=== PATIENT | male | born 1990 ===

== ENCOUNTER 2020-11-04 16:06 | Inpatient (IN) ==
[2020-11-04] MEDS ORDERED: SODIUM CHLORIDE 0.9% 1,000 ML IV PRN (20:31)
[2020-11-04] MEDS ORDERED: diphenhydrAMINE CAP 25 MG CAPSULE PO PRN (20:33)
[2020-11-04] MEDS ORDERED: GLUCAGON 1 MG VIAL IM PRN (20:33)
[2020-11-04] MEDS ORDERED: ACETAMINOPHEN 325 MG TABLET PO PRN (20:33)
[2020-11-04] MEDS ORDERED: guaiFENesin/DM ER 600-30 MG TABLET PO PRN (20:33)
[2020-11-04] MEDS ORDERED: NICOTINE 21 MG/24 HR PATCH TRANSDERM PRN (20:33)
[2020-11-04] MEDS ORDERED: DEXTROSE 50% 25 GM/50 ML VIAL IV PRN (20:33)
[2020-11-04] MEDS ORDERED: ONDANSETRON 4 MG/2 ML VIAL IV PRN (20:33)
[2020-11-04] MEDS ORDERED: hydrALAZINE 20 MG/1 ML VIAL IV PRN (20:33)
[2020-11-04] MEDS ORDERED: ZALEPLON 5 MG CAPSULE PO PRN (20:33)
[2020-11-04] MEDS ORDERED: DOCUSATE SODIUM 100 MG CAPSULE PO PRN (20:33)
[2020-11-04] MEDS ORDERED: chlordiazePOXIDE 10 MG CAPSULE PO PRN (21:10)
[2020-11-04] MEDS ORDERED: LORazepam 2 MG/1 ML VIAL IV PRN (21:12)
[2020-11-04 21:15] LABS: Basophils % 0.4 % (0.0-0.8); Eosinophils % 0.2 % (0.00-10.9); Hematocrit 35.1 VOL% (42.0-52.0); Hemoglobin 11.6 GM/DL (14.0-18.0); Immature Granulocytes % 0.4 %; Immature Granulocytes Absolute 0.02 #; Lymphocytes # 0.7 10*3/uL (1.4-4.0); Lymphocytes % 14.3 % (21.2-54.2); Mean Corpuscular Volume 99.7 FL (87-102); Mean Platelet Volume 11.3 FL (9.6-12.0); Monocytes % 6.4 % (1.7-12.7); Neutrophils % 78.3 % (38.7-73.9); Red Blood Count 3.52 MC/CUMM (3.8-5.5); Red Cell Distribution Width 14.3 % (9.3-17.3)
[2020-11-04 21:17] LABS: Platelet Count 21 T/CUMM (130-400)
[2020-11-04 21:27] LABS: Albumin 3.6 G/DL (3.4-5.0); Bilirubin,Total 3.1 MG/DL (0.20-1.00); Calcium 8.2 MG/DL (8.5-10.1); Osmolality,Calculated 275.7 MOS/KG (273-304); Potassium 4.3 MMOL/L (3.5-5.1)
[2020-11-04 21:31] LABS: INR 1.6; PT Patient Result 17.6 SECS (10.5-12.0); Partial Thromboplastin Time 35.2 SECS (23.9-33.8)
[2020-11-04 23:01] LABS: Albumin 3.6 G/DL (3.4-5.0); Bilirubin,Direct 1.29 MG/DL (0.0-0.20); Bilirubin,Indirect 1.7 MG/DL (0.0-1.0); Total Protein 8.1 G/DL (6.4-8.2)
[2020-11-05] MEDS: chlordiazePOXIDE 10 MG CAPSULE PO SCH ×4 (01:16→21:23)
[2020-11-05] MEDS: THIAMINE INJ 100 MG, FOLIC ACID INJ 1 MG, MAGNESIUM SULF INJ 2 GM, MULTIVITAMIN INJ 10 ... IV SCH ×2 (04:06→21:23)
[2020-11-05 06:05] LABS: Basophils % 0.2 % (0.0-0.8); Eosinophils % 0.7 % (0.00-10.9); Hematocrit 31.2 VOL% (42.0-52.0); Hemoglobin 10.7 GM/DL (14.0-18.0); Immature Granulocytes % 0.2 %; Immature Granulocytes Absolute 0.01 #; Lymphocytes # 1.4 10*3/uL (1.4-4.0); Mean Corpuscular HGB Conc 34.3 GM/DL (32-36); Monocytes % 7.6 % (1.7-12.7); Neutrophils % 59.3 % (38.7-73.9); Platelet Count 42 T/CUMM (130-400); Red Blood Count 3.15 MC/CUMM (3.8-5.5); Red Cell Distribution Width 14.3 % (9.3-17.3); White Blood Count 4.3 T/CUMM (4-12)
[2020-11-05 06:34] LABS: Albumin 3.4 G/DL (3.4-5.0); Calcium 8.1 MG/DL (8.5-10.1); Hypochromasia 1+; Microcytosis 1+; Osmolality,Calculated 276.7 MOS/KG (273-304); Platelet Estimate Decreased; Potassium 3.2 MMOL/L (3.5-5.1); Total Protein 7.4 G/DL (6.4-8.2)
[2020-11-05 07:12] LABS: Hepatitis B Core IgM Quant < 0.05 Index; Hepatitis B Surface Ag Quant < 0.10 Index; Hepatitis B Surface Ag Result Non-Reactive (NonReactive); Hepatitis C Virus Ab Quant 0.11 Index; Hepatitis C Virus Ab Result Non-Reactive (NonReactive)
[2020-11-05] MEDS ORDERED: MAGNESIUM SULF RIDER 2 GM/50 ML PREMIX IV PRN (07:29)
[2020-11-05] MEDS: POTASSIUM CHLORIDE 20 MEQ TABLET PO PRN ×4 (08:31→15:45)
[2020-11-05] MEDS: FOLIC ACID 1 MG TABLET PO SCH ×2 (08:31→21:23)
[2020-11-05] MEDS: PANTOPRAZOLE 40 MG TABLET PO SCH (08:31)
[2020-11-05] MEDS: THIAMINE 100 MG TABLET PO SCH ×2 (08:31→21:32)
[2020-11-05] MEDS: MULTIVITAMIN (CENTRUM) TABLET PO SCH (08:31)
[2020-11-06 06:28] LABS: Basophils % 0.2 % (0.0-0.8); Eosinophils # 0.2 10*3/uL (0.0-0.87); Hematocrit 29.2 VOL% (42.0-52.0); Hemoglobin 9.6 GM/DL (14.0-18.0); Immature Granulocytes % 0.2 %; Immature Granulocytes Absolute 0.01 #; Lymphocytes # 1.7 10*3/uL (1.4-4.0); Lymphocytes % 42.6 % (21.2-54.2); Mean Corpuscular HGB Conc 32.9 GM/DL (32-36); Mean Corpuscular Volume 101.4 FL (87-102); Mean Platelet Volume 10.6 FL (9.6-12.0); Monocytes % 6.2 % (1.7-12.7); Neutrophils % 46.8 % (38.7-73.9); Red Blood Count 2.88 MC/CUMM (3.8-5.5); Red Cell Distribution Width 14.2 % (9.3-17.3)
[2020-11-06 06:39] LABS: Platelet Count 36 T/CUMM (130-400)
[2020-11-06 06:47] LABS: Albumin 3.1 G/DL (3.4-5.0); Bilirubin,Total 3.3 MG/DL (0.20-1.00); Calcium 7.8 MG/DL (8.5-10.1); Osmolality,Calculated 271.7 MOS/KG (273-304); Potassium 3.6 MMOL/L (3.5-5.1)
[2020-11-06 06:48] LABS: Hypochromasia 1+; Microcytosis 1+; Platelet Estimate Decreased
[2020-11-06] MEDS: PANTOPRAZOLE 40 MG TABLET PO SCH (08:45)
[2020-11-06] MEDS: chlordiazePOXIDE 10 MG CAPSULE PO SCH ×2 (08:45→15:25)
[2020-11-06] MEDS: THIAMINE 100 MG TABLET PO SCH (08:45)
[2020-11-06] MEDS: MULTIVITAMIN (CENTRUM) TABLET PO SCH (08:45)
[2020-11-06] MEDS: FOLIC ACID 1 MG TABLET PO SCH (08:45)
[2020-11-06] MEDS: POTASSIUM CHLORIDE 20 MEQ TABLET PO PRN ×2 (10:57→13:03)
[2020-11-06 16:20] VITALS: BP 119/72
== END 2020-11-06 17:38 | disposition home or self-care (01) | DRG 434 ==
LOC: N.3E
PROVIDERS: ADMIT Internal Medicine; ATTEND Internal Medicine

== ENCOUNTER 2021-06-18 20:53 | Inpatient (IN) ==
[2021-06-19] MEDS ORDERED: ONDANSETRON 4 MG/2 ML VIAL IV PRN (00:50)
[2021-06-19] MEDS ORDERED: MORPHINE 4 MG/1 ML VIAL IV PRN (00:50)
[2021-06-19] MEDS ORDERED: ACETAMINOPHEN 325 MG TABLET PO PRN (00:50)
[2021-06-19] MEDS ORDERED: DEXTROSE 10% 250 ML BAG IV PRN (00:50)
[2021-06-19] MEDS ORDERED: GLUCAGON 1 MG VIAL IM PRN (00:50)
[2021-06-19 01:00] LABS: Basophils % 0.4 % (0.0-0.8); Eosinophils # 0.3 10*3/uL (0.0-0.87); Eosinophils % 3.6 % (0.00-10.9); Immature Granulocytes % 0.8 %; Immature Granulocytes Absolute 0.06 #; Lymphocytes # 2.5 10*3/uL (1.4-4.0); Lymphocytes % 32.4 % (21.2-54.2); Mean Corpuscular HGB Conc 31.6 GM/DL (32-36); Mean Corpuscular Volume 113.8 FL (87-102); Mean Platelet Volume 9.5 FL (9.6-12.0); Monocytes % 10.4 % (1.7-12.7); Neutrophils % 52.4 % (38.7-73.9); Platelet Count 126 T/CUMM (130-400); Red Blood Count 1.67 MC/CUMM (3.8-5.5); Red Cell Distribution Width 18.3 % (9.3-17.3); White Blood Count 7.8 T/CUMM (4-12)
[2021-06-19] MEDS ORDERED: SODIUM CHLORIDE 0.9% 1,000 ML IV PRN ×3 (01:07→13:06)
[2021-06-19 01:09] LABS: INR 1.9; PT Patient Result 20.3 SECS (10.5-12.0)
[2021-06-19 01:20] LABS: Albumin 1.2 G/DL (3.4-5.0); Bilirubin,Direct 4.72 MG/DL (0.0-0.20); Bilirubin,Indirect 1.7 MG/DL (0.0-1.0); Bilirubin,Total 6.4 MG/DL (0.20-1.00); Calcium 7.8 MG/DL (8.5-10.1); Osmolality,Calculated 265.5 MOS/KG (273-304); Potassium 3.5 MMOL/L (3.5-5.1); Total Protein 6.8 G/DL (6.4-8.2)
[2021-06-19] MEDS ORDERED: LORazepam 2 MG/1 ML VIAL IV PRN (01:31)
[2021-06-19 01:44] LABS: % Iron Saturation 18.4 % (18-50)
[2021-06-19 02:37] LABS: Hypochromia 3+
[2021-06-19 02:38] LABS: Platelet Estimate Adequate; Polychromasia Few
[2021-06-19 02:52] LABS: Folate 7.84 NG/ML (5.38-24.0)
[2021-06-19] MEDS: PANTOPRAZOLE 40 MG VIAL IV SCH ×2 (03:40→09:20)
[2021-06-19] MEDS ORDERED: PANTOPRAZOLE 40 MG TABLET PO SCH (09:00)
[2021-06-19] MEDS: chlordiazePOXIDE 10 MG CAPSULE PO SCH ×3 (09:20→21:57)
[2021-06-19] MEDS: THIAMINE 100 MG TABLET PO SCH ×2 (09:20→21:57)
[2021-06-19] MEDS: FOLIC ACID 1 MG TABLET PO SCH (09:20)
[2021-06-19] MEDS ORDERED: ALBUMIN 5% 25 GM/500 ML VIAL IV ONE (11:00)
[2021-06-19] MEDS ORDERED: PHYTONADIONE 5 MG/5 ML ORAL.SYR PO ONE (11:00)
[2021-06-19 15:46] LABS: Mucus,Urine Many /LPF (Occasional); RBC,Urine 1 /HPF (0-4)
[2021-06-19 15:47] LABS: Urine Appearance Slightly Hazy (Clear); Urine Color Amber (Yellow)
[2021-06-19 15:48] LABS: Glucose,Urine (UA) 100 mg/dL (Negative); Ketones,Urine Trace mg/dL (Negative); Nitrite,Urine Negative (Negative); Protein,Urine Negative; Urine Specific Gravity >= 1.030 (1.001-1.035)
[2021-06-19 15:49] LABS: Bilirubin,Urine Moderate mg/dL (Negative); Blood, Urine Negative (Negative); Urine Urobilinogen >= 8.0 EU/DL (<2.0)
[2021-06-19 16:17] LABS: Hematocrit 20.6 VOL% (42.0-52.0); Hemoglobin 6.6 GM/DL (14.0-18.0)
[2021-06-19 16:24] LABS: INR 1.7; PT Patient Result 18.4 SECS (10.5-12.0)
[2021-06-20] MEDS: PANTOPRAZOLE 40 MG VIAL IV SCH ×3 (00:09→21:33)
[2021-06-20 05:39] LABS: Basophils % 0.4 % (0.0-0.8); Eosinophils # 0.4 10*3/uL (0.0-0.87); Hematocrit 21.1 VOL% (42.0-52.0); Hemoglobin 6.8 GM/DL (14.0-18.0); Immature Granulocytes % 0.8 %; Immature Granulocytes Absolute 0.04 #; Lymphocytes % 37.1 % (21.2-54.2); Mean Corpuscular HGB Conc 32.2 GM/DL (32-36); Mean Corpuscular Volume 104.5 FL (87-102); Mean Platelet Volume 9.5 FL (9.6-12.0); Monocytes % 10.2 % (1.7-12.7); Neutrophils % 44.5 % (38.7-73.9); Platelet Count 106 T/CUMM (130-400); Red Blood Count 2.02 MC/CUMM (3.8-5.5); White Blood Count 5.3 T/CUMM (4-12)
[2021-06-20 05:49] LABS: INR 1.6; PT Patient Result 17.6 SECS (10.5-12.0)
[2021-06-20 05:58] LABS: Albumin 1.4 G/DL (3.4-5.0); Calcium 7.9 MG/DL (8.5-10.1); Osmolality,Calculated 265.5 MOS/KG (273-304); Potassium 3.3 MMOL/L (3.5-5.1); Total Protein 6.5 G/DL (6.4-8.2)
[2021-06-20] MEDS ORDERED: LACTATED RINGERS 1,000 ML IV SCH (08:00)
[2021-06-20] MEDS ORDERED: SODIUM CHLORIDE 0.9% 1,000 ML IV PRN (08:57)
[2021-06-20] MEDS: FOLIC ACID 1 MG TABLET PO SCH (10:39)
[2021-06-20] MEDS: chlordiazePOXIDE 10 MG CAPSULE PO SCH ×3 (10:39→21:32)
[2021-06-20] MEDS: THIAMINE 100 MG TABLET PO SCH ×2 (10:41→21:32)
[2021-06-20 15:26] LABS: Neutrophils,Peritoneal Fluid 11 %
[2021-06-20 15:28] LABS: RBC,Peritoneal Fluid 1217 T/CUMM
[2021-06-21 05:30] LABS: Basophils % 0.8 % (0.0-0.8); Eosinophils # 0.3 10*3/uL (0.0-0.87); Eosinophils % 6.4 % (0.00-10.9); Hematocrit 26.4 VOL% (42.0-52.0); Hemoglobin 8.7 GM/DL (14.0-18.0); Immature Granulocytes % 0.6 %; Immature Granulocytes Absolute 0.03 #; Lymphocytes % 39.8 % (21.2-54.2); Mean Corpuscular Volume 99.2 FL (87-102); Mean Platelet Volume 9.3 FL (9.6-12.0); Monocytes % 9.7 % (1.7-12.7); Neutrophils % 42.7 % (38.7-73.9); Red Blood Count 2.66 MC/CUMM (3.8-5.5); Red Cell Distribution Width 23.1 % (9.3-17.3)
[2021-06-21 05:33] LABS: Platelet Count 98 T/CUMM (130-400)
[2021-06-21 05:50] LABS: Albumin 1.2 G/DL (3.4-5.0); Bilirubin,Total 7.6 MG/DL (0.20-1.00); Calcium 7.5 MG/DL (8.5-10.1); Osmolality,Calculated 273.8 MOS/KG (273-304); Potassium 3.5 MMOL/L (3.5-5.1); Total Protein 5.9 G/DL (6.4-8.2)
[2021-06-21 06:01] LABS: Eosinophils 8 % (0-10); Lymphocytes 19 % (20-55); Platelet Estimate Decreased; Segmented Neutrophils 66 % (50-85); Total Cells Counted 100
[2021-06-21 06:02] LABS: Hypochromia 1+; Microcytosis 1+
[2021-06-21] MEDS: PANTOPRAZOLE 40 MG VIAL IV SCH ×2 (08:39→20:49)
[2021-06-21] MEDS: chlordiazePOXIDE 10 MG CAPSULE PO SCH ×3 (08:39→20:48)
[2021-06-21] MEDS: FOLIC ACID 1 MG TABLET PO SCH (08:39)
[2021-06-21] MEDS: THIAMINE 100 MG TABLET PO SCH ×2 (08:40→20:48)
[2021-06-22 06:35] LABS: Basophils % 0.5 % (0.0-0.8); Eosinophils # 0.4 10*3/uL (0.0-0.87); Eosinophils % 6.3 % (0.00-10.9); Hematocrit 26.3 VOL% (42.0-52.0); Hemoglobin 8.4 GM/DL (14.0-18.0); Immature Granulocytes % 0.5 %; Immature Granulocytes Absolute 0.03 #; Lymphocytes # 2.7 10*3/uL (1.4-4.0); Lymphocytes % 45.1 % (21.2-54.2); Mean Corpuscular HGB Conc 31.9 GM/DL (32-36); Mean Platelet Volume 9.5 FL (9.6-12.0); Monocytes % 7.6 % (1.7-12.7); Platelet Count 93 T/CUMM (130-400); Red Blood Count 2.63 MC/CUMM (3.8-5.5); Red Cell Distribution Width 22.5 % (9.3-17.3); White Blood Count 5.9 T/CUMM (4-12)
[2021-06-22 06:43] LABS: INR 1.7; PT Patient Result 18.7 SECS (10.5-12.0)
[2021-06-22 06:52] LABS: Albumin 1.3 G/DL (3.4-5.0); Bilirubin,Total 5.6 MG/DL (0.20-1.00); Calcium 7.8 MG/DL (8.5-10.1); Osmolality,Calculated 264.4 MOS/KG (273-304); Potassium 3.4 MMOL/L (3.5-5.1); Total Protein 6.2 G/DL (6.4-8.2)
[2021-06-22 06:59] LABS: Hypochromia 1+
[2021-06-22 07:00] LABS: Microcytosis 1+; Platelet Estimate Decreased
[2021-06-22] MEDS: FOLIC ACID 1 MG TABLET PO SCH (09:26)
[2021-06-22] MEDS: THIAMINE 100 MG TABLET PO SCH ×2 (09:26→21:38)
[2021-06-22] MEDS: chlordiazePOXIDE 10 MG CAPSULE PO SCH ×3 (09:26→21:38)
[2021-06-22] MEDS: PANTOPRAZOLE 40 MG VIAL IV SCH ×2 (09:35→21:38)
[2021-06-22] MEDS: SPIRONOLACTONE 50 MG TABLET PO SCH (16:22)
[2021-06-22] MEDS: FUROSEMIDE 40 MG TABLET PO SCH (16:22)
[2021-06-23 05:24] LABS: Basophils % 0.8 % (0.0-0.8); Eosinophils # 0.3 10*3/uL (0.0-0.87); Eosinophils % 6.3 % (0.00-10.9); Hemoglobin 8.7 GM/DL (14.0-18.0); Immature Granulocytes % 0.2 %; Immature Granulocytes Absolute 0.01 #; Lymphocytes # 2.3 10*3/uL (1.4-4.0); Lymphocytes % 42.6 % (21.2-54.2); Mean Corpuscular HGB Conc 32.2 GM/DL (32-36); Mean Corpuscular Volume 97.8 FL (87-102); Mean Platelet Volume 9.2 FL (9.6-12.0); Monocytes % 9.5 % (1.7-12.7); Neutrophils % 40.6 % (38.7-73.9); Platelet Count 88 T/CUMM (130-400); Red Blood Count 2.76 MC/CUMM (3.8-5.5); Red Cell Distribution Width 21.7 % (9.3-17.3); White Blood Count 5.3 T/CUMM (4-12)
[2021-06-23 05:48] LABS: Band Neutrophils 1 % (0-10); Eosinophils 5 % (0-10); Hypochromia 1+; Lymphocytes 24 % (20-55); Segmented Neutrophils 62 % (50-85); Total Cells Counted 100
[2021-06-23 05:49] LABS: Microcytosis 1+
[2021-06-23 05:50] LABS: Anisocytosis 1+; Platelet Estimate Decreased
[2021-06-23 05:53] LABS: Albumin 1.2 G/DL (3.4-5.0); Bilirubin,Total 5.6 MG/DL (0.20-1.00); Calcium 7.4 MG/DL (8.5-10.1); Potassium 3.3 MMOL/L (3.5-5.1); Total Protein 6.2 G/DL (6.4-8.2)
[2021-06-23] MEDS: SPIRONOLACTONE 50 MG TABLET PO SCH (10:13)
[2021-06-23] MEDS: chlordiazePOXIDE 10 MG CAPSULE PO SCH (10:13)
[2021-06-23] MEDS: FUROSEMIDE 40 MG TABLET PO SCH (10:13)
[2021-06-23] MEDS: THIAMINE 100 MG TABLET PO SCH (10:13)
[2021-06-23] MEDS: FOLIC ACID 1 MG TABLET PO SCH (10:13)
[2021-06-23] MEDS: PANTOPRAZOLE 40 MG VIAL IV SCH (10:16)
[2021-06-23 12:29] VITALS: BP 122/73
== END 2021-06-23 14:31 | disposition home or self-care (01) | DRG 432 ==
LOC: SUATTDRO 06-19 00:08 → N.5E 06-19 00:08
PROVIDERS: ADMIT Internal Medicine; ATTEND Hospitalist
PROC: EGDWEBL (ICD-10-PCS; 2021-06-20 10:50)

== ENCOUNTER 2021-07-03 11:03 | Observation (INO) ==
[2021-07-03 13:50] LABS: Basophils % 0.5 % (0.0-0.8); Eosinophils # 0.2 10*3/uL (0.0-0.87); Eosinophils % 3.5 % (0.00-10.9); Hematocrit 29.7 VOL% (42.0-52.0); Hemoglobin 9.6 GM/DL (14.0-18.0); Immature Granulocytes % 0.7 %; Immature Granulocytes Absolute 0.04 #; Lymphocytes # 1.5 10*3/uL (1.4-4.0); Lymphocytes % 26.2 % (21.2-54.2); Mean Corpuscular HGB Conc 32.3 GM/DL (32-36); Mean Platelet Volume 10.4 FL (9.6-12.0); Monocytes % 7.6 % (1.7-12.7); Neutrophils % 61.5 % (38.7-73.9); Platelet Count 127 T/CUMM (130-400); Red Blood Count 3.03 MC/CUMM (3.8-5.5); Red Cell Distribution Width 21.3 % (9.3-17.3); White Blood Count 5.8 T/CUMM (4-12)
[2021-07-03 13:59] LABS: INR 1.7; PT Patient Result 17.8 SECS (10.5-12.0)
[2021-07-03 14:54] LABS: Albumin 1.6 G/DL (3.4-5.0); Bilirubin,Total 5.7 MG/DL (0.20-1.00); Calcium 7.9 MG/DL (8.5-10.1); Osmolality,Calculated 273.7 MOS/KG (273-304); Potassium 3.8 MMOL/L (3.5-5.1); Total Protein 8.3 G/DL (6.4-8.2)
[2021-07-03 15:03] LABS: Sedimentation Rate-Westergren 115 MM/HR (0-15)
[2021-07-03] MEDS ORDERED: ONDANSETRON 4 MG/2 ML VIAL IV PRN (16:24)
[2021-07-03] MEDS ORDERED: LACTULOSE 20 GM/30 ML UDCUP PO PRN (16:25)
[2021-07-03] MEDS ORDERED: LACTULOSE 20 GM/30 ML UDCUP PO STA (16:34)
[2021-07-03 16:36] LABS: Bacteria,Urine Occasional /HPF (Few); Mucus,Urine Occasional /LPF (Occasional); RBC,Urine 3 /HPF (0-4)
[2021-07-03 16:37] LABS: Bilirubin,Urine Small mg/dL (Negative); Blood, Urine Small mg/dL (Negative); Glucose,Urine (UA) Negative (Negative); Ketones,Urine Negative (Negative); Nitrite,Urine Negative (Negative); Protein,Urine Negative (Negative); Urine Appearance Clear (Clear); Urine Color Yellow (Yellow); Urine Specific Gravity 1.015 (1.001-1.035); Urine Urobilinogen > 8.0 eU/dL (<2.0); Urine pH 7.5 (4.5-8.0)
[2021-07-03 16:49] LABS: Barbiturates Screen,Urine Negative (Negative); Benzodiazepines Screen,Urine Positive (Negative); Cannabinoid Screen,Urine Negative (Negative); Opiate Screen,Urine Negative (Negative); Phencyclidine Screen,Urine Negative (Negative)
[2021-07-03] MEDS: LACTULOSE 20 GM/30 ML UDCUP PO SCH (20:02)
[2021-07-03] MEDS ORDERED: INFLUENZA VIRUS VACCINE 0.5 ML SYRINGE IM ONE (23:07)
[2021-07-04 05:51] LABS: Basophils % 0.6 % (0.0-0.8); Eosinophils # 0.3 10*3/uL (0.0-0.87); Eosinophils % 6.6 % (0.00-10.9); Hematocrit 25.7 VOL% (42.0-52.0); Hemoglobin 8.3 GM/DL (14.0-18.0); Immature Granulocytes % 0.6 %; Immature Granulocytes Absolute 0.03 #; Lymphocytes # 2.4 10*3/uL (1.4-4.0); Lymphocytes % 46.3 % (21.2-54.2); Mean Corpuscular HGB Conc 32.3 GM/DL (32-36); Mean Platelet Volume 9.1 FL (9.6-12.0); Neutrophils % 37.9 % (38.7-73.9); Platelet Count 103 T/CUMM (130-400); Red Blood Count 2.65 MC/CUMM (3.8-5.5); Red Cell Distribution Width 21.5 % (9.3-17.3); White Blood Count 5.1 T/CUMM (4-12)
[2021-07-04 06:21] LABS: Albumin 1.2 G/DL (3.4-5.0); Bilirubin,Total 4.9 MG/DL (0.20-1.00); Osmolality,Calculated 276.4 MOS/KG (273-304); Potassium 3.4 MMOL/L (3.5-5.1); Total Protein 6.7 G/DL (6.4-8.2)
[2021-07-04 06:23] LABS: Eosinophils 10 % (0-10); Lymphocytes 30 % (20-55); Segmented Neutrophils 54 % (50-85); Total Cells Counted 100
[2021-07-04 06:24] LABS: Anisocytosis 1+; Burr Cells Few; Macrocytosis 1+; Platelet Estimate Adequate; Smudge Cells 2+
[2021-07-04] MEDS ORDERED: SPIRONOLACTONE 25 MG TABLET PO SCH (09:00)
[2021-07-04] MEDS ORDERED: FUROSEMIDE 40 MG TABLET PO SCH (09:00)
[2021-07-04] MEDS ORDERED: PANTOPRAZOLE 40 MG TABLET PO SCH (09:00)
[2021-07-04] MEDS: LACTULOSE 20 GM/30 ML UDCUP PO SCH ×2 (09:51→15:47)
[2021-07-04] MEDS ORDERED: POTASSIUM CHLORIDE 20 MEQ TABLET PO ONE (11:00)
[2021-07-04 12:31] VITALS: BP 105/56
== END 2021-07-04 15:59 | disposition home or self-care (01) ==
LOC: SUATTDRO → EDUNIT# → EDBD → N.ED 11:03 → N.EDINP 11:03 → N.5E 18:08
PROVIDERS: ADMIT Internal Medicine; ATTEND Internal Medicine

== ENCOUNTER 2022-03-15 10:33 | Inpatient (IN) ==
[2022-03-15] MEDS ORDERED: PANTOPRAZOLE INJ 80 MG in SODIUM CHLORIDE 0.9% 100 ML IV ONE (10:46)
[2022-03-15] MEDS ORDERED: MORPHINE 2 MG/1 ML SYRINGE IV ONE (10:47)
[2022-03-15] MEDS ORDERED: ONDANSETRON 4 MG/2 ML VIAL IV ONE (10:47)
[2022-03-15 11:12] LABS: Basophils % 0.2 % (0.0-0.8); Eosinophils # 0.1 10*3/uL (0.0-0.87); Eosinophils % 2.2 % (0.00-10.9); Hematocrit 31.6 VOL% (42.0-52.0); Hemoglobin 10.4 GM/DL (14.0-18.0); Immature Granulocytes % 0.8 %; Immature Granulocytes Absolute 0.04 #; Lymphocytes # 2.3 10*3/uL (1.4-4.0); Lymphocytes % 45.3 % (21.2-54.2); Mean Corpuscular HGB Conc 32.9 GM/DL (32-36); Mean Corpuscular Volume 96.9 FL (87-102); Mean Platelet Volume 10.5 FL (9.6-12.0); Monocytes # 0.3 10*3/uL (0.11-0.8); Monocytes % 6.5 % (1.7-12.7); Red Blood Count 3.26 MC/CUMM (3.8-5.5); Red Cell Distribution Width 16.6 % (9.3-17.3); White Blood Count 5.1 T/CUMM (4-12)
[2022-03-15] MEDS ORDERED: PANTOPRAZOLE 40 MG VIAL IV ONE (11:16)
[2022-03-15 11:19] LABS: INR 1.4; PT Patient Result 15.1 SECS (10.1-12.1)
[2022-03-15 11:22] LABS: Platelet Count 10 T/CUMM (130-400)
[2022-03-15 11:27] LABS: Platelet Estimate Decreased
[2022-03-15 11:31] LABS: Albumin 2.8 G/DL (3.4-5.0); Bilirubin,Total 2.8 MG/DL (0.20-1.00); Calcium 7.4 MG/DL (8.5-10.1); Osmolality,Calculated 285.7 MOS/KG (273-304); Potassium 3.7 MMOL/L (3.5-5.1); Total Protein 7.4 G/DL (6.4-8.2)
[2022-03-15 11:35] LABS: Bacteria,Urine Occasional /HPF (Few); Bilirubin,Urine Small mg/dL (Negative); Blood, Urine Negative (Negative); Glucose,Urine (UA) Negative (Negative); Ketones,Urine Trace mg/dL (Negative); Mucus,Urine Few /LPF (Occasional); Nitrite,Urine Negative (Negative); Protein,Urine Negative (Negative); RBC,Urine 1 /HPF (0-4); Squamous Epithelial Cell,Urine Occasional /HPF (0-10); Urine Appearance Clear (Clear); Urine Color Yellow (Yellow); Urine Specific Gravity 1.015 (1.001-1.035); Urine pH 6.5 (4.5-8.0)
[2022-03-15 11:36] LABS: Urine Urobilinogen >= 8.0 eU/dL (<2.0)
[2022-03-15] MEDS: PANTOPRAZOLE INJ 200 MG in SODIUM CHLORIDE 0.9% 250 ML IV SCH (12:26)
[2022-03-15] MEDS ORDERED: SODIUM CHLORIDE 0.9% 1,000 ML IV PRN ×2 (12:27→13:35)
[2022-03-15] MEDS ORDERED: NICOTINE 21 MG/24 HR PATCH TRANSDERM PRN (13:02)
[2022-03-15] MEDS ORDERED: SIMETHICONE CHEW 125 MG TABLET PO PRN (13:02)
[2022-03-15] MEDS ORDERED: DOCUSATE SODIUM 100 MG CAPSULE PO PRN (13:02)
[2022-03-15] MEDS ORDERED: ONDANSETRON 4 MG/2 ML VIAL IV PRN (13:02)
[2022-03-15 13:04] LABS: Barbiturates Screen,Urine Negative (Negative); Benzodiazepines Screen,Urine Negative (Negative); Cannabinoid Screen,Urine Negative (Negative); Opiate Screen,Urine Negative (Negative); Phencyclidine Screen,Urine Negative (Negative)
[2022-03-15] MEDS ORDERED: LORazepam 2 MG/1 ML VIAL IV PRN (13:06)
[2022-03-15] MEDS: SODIUM CHLORIDE 0.9% 1,000 ML IV SCH (13:25)
[2022-03-15] MEDS: THIAMINE INJ 100 MG, FOLIC ACID INJ 1 MG, MULTIVITAMIN INJ 10 ML in SODIUM CHLORIDE 0.9... IV SCH (15:03)
[2022-03-15 17:34] LABS: Hematocrit 28.5 VOL% (42.0-52.0); Hemoglobin 9.4 GM/DL (14.0-18.0)
[2022-03-15] MEDS: chlordiazePOXIDE 10 MG CAPSULE PO SCH (20:57)
[2022-03-15 21:34] LABS: Hematocrit 28.4 VOL% (42.0-52.0); Hemoglobin 9.3 GM/DL (14.0-18.0)
[2022-03-16 06:30] LABS: Basophils % 0.2 % (0.0-0.8); Eosinophils # 0.1 10*3/uL (0.0-0.87); Eosinophils % 1.8 % (0.00-10.9); Hematocrit 29.5 VOL% (42.0-52.0); Hemoglobin 9.7 GM/DL (14.0-18.0); Immature Granulocytes % 1.1 %; Immature Granulocytes Absolute 0.05 #; Lymphocytes # 1.7 10*3/uL (1.4-4.0); Lymphocytes % 38.7 % (21.2-54.2); Mean Corpuscular HGB Conc 32.9 GM/DL (32-36); Mean Platelet Volume 9.9 FL (9.6-12.0); Monocytes # 0.3 10*3/uL (0.11-0.8); Monocytes % 6.2 % (1.7-12.7); Red Blood Count 2.98 MC/CUMM (3.8-5.5); White Blood Count 4.4 T/CUMM (4-12)
[2022-03-16 06:31] LABS: Platelet Count 26 T/CUMM (130-400)
[2022-03-16 07:07] LABS: Albumin 2.8 G/DL (3.4-5.0); Bilirubin,Total 3.5 MG/DL (0.20-1.00); Calcium 7.8 MG/DL (8.5-10.1); Osmolality,Calculated 287.6 MOS/KG (273-304); Potassium 3.5 MMOL/L (3.5-5.1); Risk Ratio 2.95; Thyroid Stimulating Hormone 1.18 uIU/ml (0.358-3.74); Total Protein 7.2 G/DL (6.4-8.2); VLDL Cholesterol 29.8 MG/DL
[2022-03-16 07:13] LABS: % Iron Saturation 19.3 % (18-50); Ferritin 39.3 ng/mL (26-388)
[2022-03-16] MEDS ORDERED: SODIUM CHLORIDE 0.9% 1,000 ML IV PRN (08:54)
[2022-03-16] MEDS: SODIUM CHLORIDE 0.9% 1,000 ML IV SCH ×4 (09:02→21:52)
[2022-03-16] MEDS: chlordiazePOXIDE 10 MG CAPSULE PO SCH ×3 (09:12→20:42)
[2022-03-16] MEDS: LACTATED RINGERS 1,000 ML IV SCH (09:13)
[2022-03-16] MEDS ORDERED: LIDOCAINE 2% 5 ML VIAL ONE (10:19)
[2022-03-16] MEDS ORDERED: propofoL 200 MG/20 ML VIAL IV ONE (10:19)
[2022-03-16] MEDS ORDERED: ETOMIDATE 20 MG/10 ML VIAL IV ONE (10:31)
[2022-03-16] MEDS ORDERED: PHENYLEPHRINE 1 MG/10 ML SYRINGE IV ONE (10:33)
[2022-03-16] MEDS: PANTOPRAZOLE INJ 200 MG in SODIUM CHLORIDE 0.9% 250 ML IV SCH (13:29)
[2022-03-16] MEDS: cefTRIAXone 2,000 MG in SODIUM CHLORIDE 0.9% 100 ML IV SCH (13:29)
[2022-03-16] MEDS: THIAMINE INJ 100 MG, FOLIC ACID INJ 1 MG, MULTIVITAMIN INJ 10 ML in SODIUM CHLORIDE 0.9... IV SCH (13:30)
[2022-03-16] MEDS: PROPRANOLOL 10 MG TABLET PO SCH (20:42)
[2022-03-17 05:22] LABS: Basophils % 0.4 % (0.0-0.8); Eosinophils # 0.1 10*3/uL (0.0-0.87); Eosinophils % 3.8 % (0.00-10.9); Hematocrit 26.5 VOL% (42.0-52.0); Hemoglobin 8.7 GM/DL (14.0-18.0); Immature Granulocytes % 0.8 %; Immature Granulocytes Absolute 0.02 #; Lymphocytes # 1.1 10*3/uL (1.4-4.0); Lymphocytes % 40.8 % (21.2-54.2); Mean Corpuscular HGB Conc 32.8 GM/DL (32-36); Mean Corpuscular Volume 98.9 FL (87-102); Mean Platelet Volume 10.2 FL (9.6-12.0); Monocytes # 0.3 10*3/uL (0.11-0.8); Neutrophils % 44.2 % (38.7-73.9); Red Blood Count 2.68 MC/CUMM (3.8-5.5); Red Cell Distribution Width 17.2 % (9.3-17.3); White Blood Count 2.6 T/CUMM (4-12)
[2022-03-17 05:25] LABS: Platelet Count 26 T/CUMM (130-400)
[2022-03-17 05:47] LABS: Calcium 7.5 MG/DL (8.5-10.1); Osmolality,Calculated 274.5 MOS/KG (273-304); Potassium 3.2 MMOL/L (3.5-5.1)
[2022-03-17] MEDS: SODIUM CHLORIDE 0.9% 1,000 ML IV SCH ×2 (05:59→16:40)
[2022-03-17 06:03] LABS: Platelet Estimate Decreased
[2022-03-17] MEDS: chlordiazePOXIDE 10 MG CAPSULE PO SCH ×3 (10:05→20:12)
[2022-03-17] MEDS: FOLIC ACID 1 MG TABLET PO SCH (10:05)
[2022-03-17] MEDS: LACTATED RINGERS 1,000 ML IV SCH (10:05)
[2022-03-17] MEDS: PROPRANOLOL 10 MG TABLET PO SCH ×2 (10:05→20:12)
[2022-03-17] MEDS: cefTRIAXone 2,000 MG in SODIUM CHLORIDE 0.9% 100 ML IV SCH (11:45)
[2022-03-17] MEDS: THIAMINE INJ 100 MG, FOLIC ACID INJ 1 MG, MULTIVITAMIN INJ 10 ML in SODIUM CHLORIDE 0.9... IV SCH (13:56)
[2022-03-17] MEDS: PANTOPRAZOLE 40 MG TABLET PO SCH (20:12)
[2022-03-17] MEDS ORDERED: guaiFENesin 200 MG/10 ML UDCUP PO PRN (23:51)
[2022-03-18] MEDS: SODIUM CHLORIDE 0.9% 1,000 ML IV SCH ×4 (00:03→20:49)
[2022-03-18 05:22] LABS: Basophils % 0.3 % (0.0-0.8); Eosinophils # 0.2 10*3/uL (0.0-0.87); Hematocrit 26.8 VOL% (42.0-52.0); Hemoglobin 8.9 GM/DL (14.0-18.0); Immature Granulocytes % 0.7 %; Immature Granulocytes Absolute 0.02 #; Lymphocytes # 1.4 10*3/uL (1.4-4.0); Lymphocytes % 45.3 % (21.2-54.2); Mean Corpuscular HGB Conc 33.2 GM/DL (32-36); Mean Corpuscular Volume 97.1 FL (87-102); Mean Platelet Volume 10.4 FL (9.6-12.0); Monocytes # 0.3 10*3/uL (0.11-0.8); Monocytes % 10.7 % (1.7-12.7); Red Blood Count 2.76 MC/CUMM (3.8-5.5); Red Cell Distribution Width 17.3 % (9.3-17.3)
[2022-03-18 05:24] LABS: Platelet Count 27 T/CUMM (130-400)
[2022-03-18 05:46] LABS: Eosinophils 5 % (0-10); Lymphocytes 44 % (20-55); Platelet Estimate Decreased; Total Cells Counted 100
[2022-03-18 05:47] LABS: Hypochromia Slight
[2022-03-18 06:07] LABS: Albumin 2.3 G/DL (3.4-5.0); Bilirubin,Total 2.4 MG/DL (0.20-1.00); Calcium 7.9 MG/DL (8.5-10.1); Osmolality,Calculated 278.1 MOS/KG (273-304)
[2022-03-18] MEDS: FOLIC ACID 1 MG TABLET PO SCH (08:19)
[2022-03-18] MEDS: PANTOPRAZOLE 40 MG TABLET PO SCH ×2 (08:19→20:48)
[2022-03-18] MEDS: POTASSIUM CHLORIDE 20 MEQ TABLET PO SCH ×2 (08:19→20:48)
[2022-03-18] MEDS: PROPRANOLOL 10 MG TABLET PO SCH ×2 (08:19→20:48)
[2022-03-18] MEDS: chlordiazePOXIDE 10 MG CAPSULE PO SCH ×3 (08:19→20:48)
[2022-03-18] MEDS: cefTRIAXone 2,000 MG in SODIUM CHLORIDE 0.9% 100 ML IV SCH (08:24)
[2022-03-18] MEDS: LACTATED RINGERS 1,000 ML IV SCH (10:32)
[2022-03-18] MEDS: THIAMINE INJ 100 MG, FOLIC ACID INJ 1 MG, MULTIVITAMIN INJ 10 ML in SODIUM CHLORIDE 0.9... IV SCH (14:20)
[2022-03-19] MEDS: SODIUM CHLORIDE 0.9% 1,000 ML IV SCH ×2 (05:04→14:28)
[2022-03-19 06:13] LABS: Basophils % 0.3 % (0.0-0.8); Eosinophils # 0.1 10*3/uL (0.0-0.87); Eosinophils % 4.3 % (0.00-10.9); Hematocrit 25.5 VOL% (42.0-52.0); Hemoglobin 8.4 GM/DL (14.0-18.0); Immature Granulocytes % 0.3 %; Immature Granulocytes Absolute 0.01 #; Lymphocytes # 1.7 10*3/uL (1.4-4.0); Lymphocytes % 51.4 % (21.2-54.2); Mean Corpuscular HGB Conc 32.9 GM/DL (32-36); Mean Corpuscular Volume 97.3 FL (87-102); Mean Platelet Volume 11.2 FL (9.6-12.0); Monocytes # 0.3 10*3/uL (0.11-0.8); Monocytes % 10.3 % (1.7-12.7); Neutrophils % 33.4 % (38.7-73.9); Red Blood Count 2.62 MC/CUMM (3.8-5.5); Red Cell Distribution Width 17.8 % (9.3-17.3); White Blood Count 3.3 T/CUMM (4-12)
[2022-03-19 06:15] LABS: Platelet Count 24 T/CUMM (130-400)
[2022-03-19 06:36] LABS: Calcium 7.6 MG/DL (8.5-10.1); Osmolality,Calculated 274.4 MOS/KG (273-304); Potassium 3.3 MMOL/L (3.5-5.1)
[2022-03-19 06:39] LABS: Eosinophils 1 % (0-10); Lymphocytes 44 % (20-55); Platelet Estimate Decreased; Total Cells Counted 100
[2022-03-19] MEDS: FOLIC ACID 1 MG TABLET PO SCH (09:25)
[2022-03-19] MEDS: PROPRANOLOL 10 MG TABLET PO SCH (09:25)
[2022-03-19] MEDS: chlordiazePOXIDE 10 MG CAPSULE PO SCH (09:25)
[2022-03-19] MEDS: PANTOPRAZOLE 40 MG TABLET PO SCH (09:25)
[2022-03-19] MEDS: cefTRIAXone 2,000 MG in SODIUM CHLORIDE 0.9% 100 ML IV SCH (09:26)
[2022-03-19 11:57] VITALS: BP 115/65
[2022-03-20] MEDS ORDERED: FOLIC ACID 1 MG TABLET PO SCH (09:00)
[2022-03-20] MEDS ORDERED: THIAMINE 100 MG TABLET PO SCH (09:00)
[2022-03-20] MEDS ORDERED: MULTIVITAMIN (CENTRUM) TABLET PO SCH (09:00)
== END 2022-03-19 14:20 | disposition home or self-care (01) | DRG 378 ==
LOC: N.ED 10:33 → N.EDINP 13:03 → SUATTDRO 13:03 → N.3E 16:25
PROVIDERS: ADMIT Hospitalist; ATTEND Internal Medicine